=== PATIENT | female | born 1955 | race Asian ===

== ENCOUNTER → 2018-09-19 | Outpatient (CLI) | payer OTHER ==
[~2018-09-19] VITALS: Ht 170.2 cm; Wt 99.8 kg
[~2018-09-19] MED LIST: AMBIEN 10 MG TA10 MG PO; AMITRIPTYLINE H10 M1 PO; CARISOPRODOL 3350 MG PO; CELEXA20 MG PO; CIPROFLOXACIN500 M3 PO; COLACE 100 MG100 MG PO; DURAGESIC1 EAC4 TOP; DURAGESIC1 EACH TRANSDERM; ENOXAPARIN100 MG/11 SUBQ; HYDROCODON-ACE1 EAC5 PO; HYDROCODON-ACE1 EAC7 PO; NORCO 10-325 T1 EACH PO; NUVIGIL50 MG PO; PACERONE 200 M200 M1 PO; PEPCID20 MG PO; PRILOSEC 20 MG20 MG PO; QUETIAPINE FUM100 MG PO; SEROQUEL 25 MG25 M1 PO; SOMA250 MG PO; SYNTHROID25 MC1 PO
--- NOTE | ~2018-09-19 | HPC ---
[facility] [address] [place] [address] PAIN MANAGEMENT CONSULTATION Name: RADHA ABREU Room #: REG [facility] M.R.#: [id number] Admission: 09/19/18 Attend Phys: Carter Garcia MD Discharge: Date of : 59 Report #: [id number] THIS REPORT FOR: //name// CC: Gale Garcia DATE OF SERVICE: 09/19/2018 CHIEF COMPLAINT: Followup visit for chronic headaches, status post craniectomy for debulking of anaplastic astrocytoma. HISTORY OF PRESENT ILLNESS: The patient is in the clinic today with her . She is followed by our clinic for medication of her pain medications necessary to help with daily function following her surgery. She had two craniotomies in 2016 and one in 12/2018 for debulking. She has actually been fairly stable over the course of the last 3 months. She reports to me that her pain score today is around a 7 and she describes it as a constant ache. Overall, she looks and reports that despite her score, she is somewhat better than she has been. MEDICATIONS: Duragesic 25 mcg q. 72 hours, hydrocodone 10/325 and Nuvigil 100 mg once daily for opioid related side effects and for narcolepsy. She has done well with Nuvigil. She would like to reduce her fentanyl patch to 25 mcg despite her pain score. This is her choice and she feels that she might have more energy if she is on less baseline narcotic. She has been very tired over the course of the last week, but it should be noted that she has been on Decadron for some time and it was just discontinued one week ago. I would expect that she is going to have lag because of the adrenal cortical suppression and before her adrenal glands will begin processing cortisol to baseline level in a diurnal rhythm it may take a few more weeks. We will wait and see. PHYSICAL EXAMINATION: GENERAL: She is conversant, dysarthric, but I thought her speech was actually clear today than last visit. VITAL SIGNS: Blood pressure 102/61, heart rate 81. Her BMI is 34.44. EXTREMITIES: She has diffuse tenderness of the cranium. Scar from previous surgery noted. CHEST: Clear. CARDIAC: Rhythm was regular. ABDOMEN: Soft. All medications were reviewed and reconciled. She is on a number of centrally [place] [address] [place] [address] PAIN MANAGEMENT CONSULTATION Name: RADHA ABREU Room #: REG [facility] Garcia.#: [id number] Admission: 09/19/18 Attend Phys: Carter Garcia MD Discharge: Date of : 59 Report #: [id number] acting medications. We reviewed each separately and I have agreed to provide for her the pain medications that are helpful. She will be on fentanyl 12 mcg q. 72-hour patch, hydrocodone 10/325, one-two tablets daily as needed for breakthrough pain. Her will help provide these for her and the Nuvigil at 100 mg once in the morning. Opioid agreement was reviewed in detail. The responsibilities for safeguarding medication discussed. Plan to see her back in the pain clinic in 3 months. By: [id number] Carter Garcia MD /nt
[2018-09-19 13:02] VITALS: BP 102/61
--- NOTE | 2018-09-19 13:18 | NUR ---
Pain Clinic Assessment: 1. History of Osteoarthritis: History of Rheumatoid Arthritis: 2. Height: 5 ft. 7 in. 170.2 cm. Weight: 220.0 lb. oz. 99.792 kg. Patient's BMI: 34.4 3. Vital Signs: BP: 102/61 Pulse: 81 Resp: 14 Temp: 02 Sat: 94 ECG Mon: 4. Pain Intensity: 7 5. Fall Risk: Dizziness: Y Needs help standing or walking: Y Fallen in the last 3 months: N Fall risk comments: 6. Patient on Blood Thinner: Enaxoparin (Lovenox) 7. History of Hypertension: N 8. Opioid Therapy greater than 6 weeks: Y Opiate Contract Signed: 9. Risk Assessment Tool Provided: 10. Functional Assessment Tool: 11. Recreational Drug Use: Never Drug Type: Tobacco Use: Never Smoker Tobacco Type: Amount or Packs/day: How Many Years: Alcohol Use: Yes Frequency: Weekly Quant: 2-3
== END ==
LOC: PAIN 07:16
DX: R51 Headache (principal); G89.29 Other chronic pain; Z72.89 Other problems related to lifestyle; Z98.890 Other specified postprocedural states; Z79.899 Other long term (current) drug therapy

== ENCOUNTER → 2018-10-13 | Outpatient (CLI) | payer OTHER ==
[~2018-10-13] VITALS: Ht 170.2 cm; Wt 97.8 kg
[~2018-10-13] MED LIST changes: +DURAGESIC1 EAC4 TD; +DURAGESIC1 EAC4 TRANSDERM; +K-DUR 20 MEQ T20 MEQ PO; +LEVOTHYROXINE25 MCG PO; +SORINE 80 MG TA80 M1 PO; +XARELTO20 MG PO
--- NOTE | ~2018-10-13 | HPC ---
[facility] [place] [address] PAIN MANAGEMENT CONSULTATION Name: RADHA ABREU Room #: REG [facility] M..#: [id number] Admission: 10/13/18 ������������������ Attend Phys: Carter Garcia MD Discharge: ������������������ Date of : 59 Report #: [id number] THIS REPORT FOR: //name// CC: Gale Garcia DATE OF SERVICE: 10/13/2018 CHIEF COMPLAINT: Followup visit for grade 3 astrocytoma and palliative care discussion. The patient is in the clinic today with her . They were here today for a 30-minute consultation regarding palliative care. He is the primary caregiver. She has completed her final course of chemotherapy. Currently, no treatments are being offered by her oncologist. She continues to suffer some from pain, which she scores as a 7/10 and we have been adjusting her opioid and nonopioid medications to try and cover as much of the pain as possible. Most of her pain is in the head and it is associated with her incisions from decompression. She describes it as gnawing and throbbing. She is confined to a wheelchair. She has a pressure sore on the buttock, which has been under treatment. This also increases pain. Other symptoms associated with her cancer include fatigue, weakness, shortness of breath, memory loss, occasional nervousness and some depression. She has had insomnia. MEDICATIONS: Fentanyl patch now 25 mcg q. 72 hours, hydrocodone 10/325 up to 2 per day for breakthrough, Nuvigil for cancer related fatigue and difficulty with concentration during the day. Xarelto, levothyroxine, Seroquel, Pepcid, Celexa and Soma. ALLERGIES: None. PHYSICAL EXAMINATION: GENERAL: She speaks with some hesitancy, but she is focused clear and oriented to time and place. She participated in the palliative care discussion. VITAL SIGNS: Blood pressure is 96/64, heart rate 70, respirations 12, O2 sats 94. BMI is 33.8. She has tenderness along the cranium. CHEST: Clear. CARDIAC: Regular rhythm. She shows no shortness of breath. [facility] [address] [place] [address] PAIN MANAGEMENT CONSULTATION Name: RADHA ABREU Room #: REG [facility].#: [id number] Admission: 10/13/18 ������������������ Attend Phys: Carter Garcia MD Discharge: ������������������ Date of : 59 Report #: [id number] IMPRESSION: 1. 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 2. Daytime fatigue, aphasia, nocturnal insomnia and chronic head pain. 3. Situational depression. RECOMMENDATIONS: 1. Long discussion ensued today about palliative care and hospice. She may be well a hospice candidate at this point. The philosophy of care was discussed at some length. Deciding that if something were to occur suddenly that she would not go to the hospital and pass away peacefully under the care of her and the hospice team is collazo. With cancer, this could occur at any time. She has, however, been stable for some time since her diagnosis. A decline can be slow or sudden. We cannot predict precisely the course of her cancer. 2. Palliative care is a form of symptom management provided and is essentially a home health reimbursement model that was discussed as the difference between hospice which is provided under hospice benefit. She will be going under Medicare soon. She may need some help with wound management, specialized durable equipment which could be provided through hospice. I have recommended that she continue on her current medications and I have renewed her hydrocodone and fentanyl. I have also renewed her Nuvigil. Followup visit scheduled in the pain clinic in 1-2 months and I will be available for further discussions and I answered questions regarding end of life care and palliative care at any time requested. ��������������������������������������������� ���������������������������������������� By: ��������������������������������������������� [id number] Carter Garcia MD /nt
[2018-10-13 14:00] VITALS: BP 96/64
--- NOTE | 2018-10-13 14:23 | NUR ---
Pain Clinic Assessment: 1. History of Osteoarthritis: Not Applicable History of Rheumatoid Arthritis: Not Applicable 2. Height: 5 ft. 7 in. 170.2 cm. Weight: 215.6 lb. oz. 97.796 kg. Patient's BMI: 33.8 3. Vital Signs: BP: 96/64 Pulse: 70 Resp: 12 Temp: 02 Sat: 94 ECG Mon: 4. Pain Intensity: 7 5. Fall Risk: Dizziness: Y Needs help standing or walking: Y Fallen in the last 3 months: Y Fall risk comments: 6. Patient on Blood Thinner: Enaxoparin (Lovenox) 7. History of Hypertension: N 8. Opioid Therapy greater than 6 weeks: Y Opiate Contract Signed: 9. Risk Assessment Tool Provided: low-0 10. Functional Assessment Tool: 11. Recreational Drug Use: Never Drug Type: Tobacco Use: Never Smoker Tobacco Type: Amount or Packs/day: How Many Years: Alcohol Use: Yes Frequency: Quant:
== END ==
LOC: PAIN 07:03
DX: C71.9 Malignant neoplasm of brain, unspecified (principal); R51 Headache; G89.29 Other chronic pain; F43.21 Adjustment disorder with depressed mood; R47.01 Aphasia; G47.09 Other insomnia; Z79.899 Other long term (current) drug therapy; Z79.891 Long term (current) use of opiate analgesic

== ENCOUNTER → 2018-12-06 | Outpatient (CLI) | payer OTHER ==
[~2018-12-06] VITALS: Ht 175.3 cm; Wt 89.8 kg
[~2018-12-06] MED LIST changes: +DILAUDID 2 MG TA2 MG PO
--- NOTE | ~2018-12-06 | HPC ---
[facility] [place] [address] PAIN MANAGEMENT CONSULTATION Name: RADHA ABREU Room #: REG [facility] Jana.#: [id number] Admission: 12/06/18 ������������������ Attend Phys: Carter Garcia MD Discharge: ������������������ Date of : 59 Report #: [id number] THIS REPORT FOR: //name// CC: Gary Garcia DATE OF SERVICE: 12/06/2018 PALLIATIVE CARE FOLLOWUP Followup visit for medication management of intractable pain, headache, post craniectomy syndrome. The patient is in the clinic today in followup with her . She was last seen on 10/13/2018. We have been carefully adjusting medications to provide the best pain relief with fewer side effects. She reports today that her pain intensity is a 7/10. It has been increasing somewhat. She is a fall risk and always needs help with walking. She uses a wheelchair except at home for short transfers and in therapy. Her BMI has remained stable, about 29.2. She denies osteoarthritis. Her pain is primarily in the left side of her head. She is on Lovenox. Has no history of hypertension. She is at low risk for addiction and has signed an opioid agreement. She describes her pain as a constant, gnawing, throbbing sensation. She occasionally has flares that are very severe. These occurred perhaps a bit more frequently since going off of steroids. She notices changes also with weather. PHYSICAL EXAMINATION: GENERAL: She appears a bit less cushingoid. She is in a wheelchair. She speaks hesitantly with slight slurring. VITAL SIGNS: Her blood pressure is 91/61, heart rate 73, BMI 29.2. HEENT: Pupils equal, round, reactive to light. EOMs are intact. Mucous membranes are moist. CHEST: Clear. CARDIAC: Rhythm is regular. IMPRESSION: 1. 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 2. Chronic cancer related fatigue. 3. Situational depression. 4. Management of high risk medications. We had a lengthy discussion today. [facility] [address] [address] PAIN MANAGEMENT CONSULTATION Name: BRADYMEYA ASHIA Room #: REG [facility] Henriquez#: [id number] Admission: 12/06/18 ������������������ Attend Phys: Carter Garcia MD Discharge: ������������������ Date of : 59 Report #: [id number] Total time spent in consultation was roughly 25 minutes. We have elected to do an opioid transition to hydromorphone 2 mg 1-2 tablets up to 3 times a day for breakthrough. Titrating instructions were given and trial prescription for #60 tablets initiated. She will continue on her baseline fentanyl 25 mcg q. 72 hours, which has been helpful. All other medications reviewed and reconciled including Nuvigil, which she takes for cancer related fatigue and difficulty with concentration. She is also on levothyroxine, Seroquel, Pepcid, Celexa and Soma. Followup visit is planned by phone to determine the suitability of this transition and opioid rotation. A followup visit is scheduled in pain clinic for a [id number] evaluation 1-2 months. We will try to keep her visits to only those essential to make sure that her medications are provided carefully and safely. We reviewed our opioid agreement and her responsibilities taking them cautiously and safely under our direction. ��������������������������������������������� ���������������������������������������� By: ��������������������������������������������� [id number] Carter Garcia MD /nt
[2018-12-06 11:13] VITALS: BP 91/60
--- NOTE | 2018-12-06 11:13 | NUR ---
Pain Clinic Assessment: 1. History of Osteoarthritis: Not Applicable History of Rheumatoid Arthritis: Not Applicable 2. Height: 5 ft. 9 in. 175.3 cm. Weight: 198.0 lb. oz. 89.812 kg. Patient's BMI: 29.2 3. Vital Signs: BP: 91/60 Pulse: 73 Resp: 16 Temp: 02 Sat: 95 ECG Mon: 4. Pain Intensity: 7 5. Fall Risk: Dizziness: Y Needs help standing or walking: Y Fallen in the last 3 months: N Fall risk comments: ALWAYS HAS HELP WITH WALKING, IN W/C AT HOME EXCEPT WHEN IN THERAPY 6. Patient on Blood Thinner: Enaxoparin (Lovenox) 7. History of Hypertension: N 8. Opioid Therapy greater than 6 weeks: Y Opiate Contract Signed: 9. Risk Assessment Tool Provided: low-0 10. Functional Assessment Tool: 42 11. Recreational Drug Use: Never Drug Type: Tobacco Use: Never Smoker Tobacco Type: Amount or Packs/day: How Many Years: Alcohol Use: Yes Frequency: Quant:
== END ==
LOC: PAIN 07:07
DX: G97.82 Other postprocedural complications and disorders of nervous system (principal); R53.0 Neoplastic (malignant) related fatigue; F43.21 Adjustment disorder with depressed mood; Z79.899 Other long term (current) drug therapy

== ENCOUNTER → 2019-01-30 | Outpatient (CLI) | payer OTHER ==
[~2019-01-30] VITALS: Ht 175.3 cm; Wt 86.9 kg
[~2019-01-30] MED LIST changes: +METHYLPHENIDATE5 MG PO
[2019-01-30 10:21] VITALS: BP 100/56
--- NOTE | 2019-01-30 10:33 | NUR ---
Pain Clinic Assessment: 1. History of Osteoarthritis: Not Applicable History of Rheumatoid Arthritis: Not Applicable 2. Height: 5 ft. 9 in. 175.3 cm. Weight: 191.6 lb. oz. 86.909 kg. Patient's BMI: 28.3 3. Vital Signs: BP: 100/56 Pulse: 76 Resp: 16 Temp: 02 Sat: 100 ECG Mon: 4. Pain Intensity: 8 5. Fall Risk: Dizziness: Y Needs help standing or walking: Y Fallen in the last 3 months: N Fall risk comments: ALWAYS HAS HELP WITH WALKING, IN W/C AT HOME EXCEPT WHEN IN THERAPY 6. Patient on Blood Thinner: XARELTO 7. History of Hypertension: N 8. Opioid Therapy greater than 6 weeks: Y Opiate Contract Signed: 9. Risk Assessment Tool Provided: low-0 10. Functional Assessment Tool: 11. Recreational Drug Use: Never Drug Type: Tobacco Use: Never Smoker Tobacco Type: Amount or Packs/day: How Many Years: Alcohol Use: No Frequency: Quant:
--- NOTE | 2019-01-31 13:26 | HPC ---
[facility] [address] [place] [place] [address] PAIN MANAGEMENT CONSULTATION Name: RADHA ABREU Room #: REG [facility] M..#: [id number] Admission: 01/30/19 ������������������ Attend Phys: Kalpana Lee Discharge: ������������������ Date of : 59 Report #: [id number] THIS REPORT FOR: //name// CC: Kalpana Levy MD DATE OF SERVICE: 01/30/2019 CHIEF COMPLAINT: Headache, post-craniotomy syndrome. HISTORY OF PRESENT ILLNESS: This is a very pleasant 63-year-old female who is here present with her for followup for medication management for palliative care that she uses to treat her ongoing headache as a result of her astrocytoma and craniotomies. She experiences chronic headaches in the occipital part of her head. She tells me that it is an 8/10 today, constant 9, throbbing pain. The medications help relieve it slightly. She tells me she is not currently doing any radiation or chemotherapy. She is trying to enjoy what she has left in her life, trying to be with her , and work on the quality of life that she has left. She tells me that she is going to have lab work drawn today, just routine labs, otherwise she has been enjoying her family. ALLERGIES: No known drug allergies. CURRENT MEDICATIONS: Ritalin 5 mg b.i.d., Dilaudid 2 mg as needed, fentanyl patch 25 mcg, Synthroid 37.5, Xarelto 20 mg, sotalol 80 mg, potassium 20 mEq, Seroquel 100 mg, Pepcid 20, Celexa, and Soma. PQRS: 1. She does not have a history of osteoarthritis or rheumatoid arthritis. 2. Height is 5 feet 9 inches, weight is 191. BMI is 28. Vital signs 100/56, pulse is 76, respirations 16, and oxygen sat is 100. Pain score is 8/10. 3. Fall risk, complains of dizziness, does need help with walking. She is in a wheelchair today, but she does need help with walking as well. She has not fallen in the last 3 months. 4. She is on Xarelto. She does not take medicine for hypertension. 5. Her opioid therapy is greater than 6 weeks; therefore, an opioid signed contract is on the chart. 6. Her risk assessment tool is 0. Functional assessment is 42/70. 7. Recreational drug use, she denies. She is not a smoker [place] [address] PAIN MANAGEMENT CONSULTATION Name: RADHA ABREU [id number] Admission: 01/30/19 ������������������ Attend Phys: Kalpana Lee Discharge: ������������������ Date of : 59 Report #: [id number] We did check the prescription monitoring system. The patient is filling appropriately for her fentanyl and Dilaudid. She recently started Ritalin in place of Nuvigil. Family tells me she safeguards her meds at all times. PHYSICAL EXAMINATION: GENERAL: This is alert and orientated female. She speaks with a slight slurring. She appears her stated age. Placing her pain score today at 8/10. HEENT: Pupils equal, round, and reactive to light. EOMs are intact. Mucous membranes are moist. Complains of daily headaches in the occipital part of her head. ASSESSMENT: 1. 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 2. Chronic cancer related fatigue. 3. Situational depression. 4. Management of high risk medications. We reviewed the fact that opiate medications are being used to provide analgesia adequate to support activities of daily living, not attempting to achieve a specific pain score on the 0-10 Visual Analog Scale. The current opiate medications are providing sufficient analgesia to allow the patient to participate in activities of daily living. The patient is not exhibiting any aberrant behavior suggestive of drug diversion. The patient is not having any adverse reactions to medications. The patient is not suffering from daytime somnolence or mental acuity changes. The patient is managing opiate-induced constipation with appropriate [id number]-[id number] agents and dietary considerations. The patient was counseled on concern for caution with operating a motor vehicle while using opiate medications. A physical exam was performed and the patient's functional status was evaluated. All patients with back pain were advised against the bed rest greater than 4 days and were advised to return to normal activities. Pain score assessment was noted and the treatment plan was reviewed with the patient. All current medications, both prescribed and OTC were reviewed and reconciled on the electronic medical record. Tobacco screening was accomplished and smoking cessation was advised when indicated. BMI was noted and diet/exercise modification was recommended for all patients following outside normal parameters. I reviewed with the patient today their responsibilities to safeguard prescription medications, reviewed their responsibility to utilize medications only as prescribed by the physician. They are to seek and receive pain medications only from 1 physician group ([facility]). They are to use 1 pharmacy and keep the clinic informed if they change pharmacies. Their responsibilities include making followup visits in a timely fashion and to avoid abrupt discontinuation of medication usage. Their responsibilities further [facility] [address] [place] [address] PAIN MANAGEMENT CONSULTATION Name: RADHA ABREU [facility] [id number] Admission: 01/30/19 ������������������ Attend Phys: Kalpana RUSS Rosa Discharge: ������������������ Date of : 59 Report #: [id number] include bringing their medications (bottles from the pharmacy with residual pills) to the visit for possible confirmation of pill counts and the patient understands it is their responsibility to submit to random drug screens to ensure both that the medications prescribed are present, and that no other controlled substances are present. All prescriptions provided today were generated electronically. PLAN: 1. The patient is doing reasonably well on her current medication of the fentanyl patch every 72 hours and would like refills of those. She had been taking about 3 Dilaudid per day as well that recently ran out before her appointment, so she had switched to hydrocodone. She does feel that the Dilaudid is much more effective in controlling her pain and enables her to have some activities that she does with her and family. They are requesting scripts refills today. 2. Fentanyl 25 mcg, #10 for today and 4-week and Dilaudid 2 mg every 8 hours, #90 for today and 4-week release. 3. We did briefly talk about medical marijuana. I did give her the name of [employer] that they can look at online to see about medical marijuana treatments. I am unsure of the date when they will start seeing patients to give them prescription cards and then start selling it. I encouraged the patient to look at their website to see if they could glean any information. 4. The patient will be seen back in 2 months. The patient denies any constipation as a result of her narcotics. She does have some daytime sleepiness, but she tells me that ongoing fatigue that she normally suffers from. The patient seen in collaboration with Dr. Carter Garcia who did see the patient as well today. ��������������������������������������������� <ELECTRONICALLY SIGNED> ���������������������������������������� By: Kalpana Lee ��������������������������������������������� 01/31/19 [id number] Kalpana Lee /nt
== END ==
LOC: PAIN 06:46
DX: C71.9 Malignant neoplasm of brain, unspecified (principal); F43.21 Adjustment disorder with depressed mood; R53.83 Other fatigue; Z79.899 Other long term (current) drug therapy

== ENCOUNTER → 2019-03-27 | Outpatient (CLI) | payer OTHER ==
[~2019-03-27] VITALS: Ht 170.2 cm; Wt 83.0 kg
[~2019-03-27] MED LIST changes: +DURAGESIC1 EACH TOP
[2019-03-27 11:14] VITALS: BP 104/40
--- NOTE | 2019-03-27 11:18 | NUR ---
Pain Clinic Assessment: 1. History of Osteoarthritis: Not Applicable History of Rheumatoid Arthritis: Not Applicable 2. Height: 5 ft. 7 in. 170.2 cm. Weight: 183.0 lb. oz. 83.008 kg. Patient's BMI: 28.7 3. Vital Signs: BP: 104/40 Pulse: 74 Resp: 16 Temp: 02 Sat: 99 ECG Mon: 4. Pain Intensity: 7 5. Fall Risk: Dizziness: N Needs help standing or walking: N Fallen in the last 3 months: N Fall risk comments: ALWAYS HAS HELP WITH WALKING, IN W/C AT HOME EXCEPT WHEN IN THERAPY 6. Patient on Blood Thinner: XARELTO 7. History of Hypertension: N 8. Opioid Therapy greater than 6 weeks: Y Opiate Contract Signed: 9. Risk Assessment Tool Provided: low-0 10. Functional Assessment Tool: 11. Recreational Drug Use: Never Drug Type: Tobacco Use: Never Smoker Tobacco Type: Amount or Packs/day: How Many Years: Alcohol Use: No Frequency: Quant:
--- NOTE | 2019-03-28 12:34 | HPC ---
[facility] [address] [place] [address] PAIN MANAGEMENT CONSULTATION Name: RADHA ABREU [id number] Admission: 03/27/19 Attend Phys: Kalpana Lee Discharge: Date of : 59 Report #: [id number] THIS REPORT FOR: //name// CC: Kalpana ALFONSO DATE OF SERVICE: 03/27/2019 CHIEF COMPLAINT: Headache, post-craniotomy syndrome. HISTORY OF PRESENT ILLNESS: This is a very pleasant 63-year-old female who returns to the pain clinic today with her for refill of her medications that she uses to help treat her ongoing headaches as a result of her astrocytoma and craniotomies. We are treating her as palliative care patient. The patient experiences chronic headaches in the occipital part of her head on a daily basis. Today, she rates her pain score at 7/10, stating it is a constant 9, throbbing pain that everything makes her pain worse and not much alleviates it. The patient is telling me that she feels quite sedated recently, taking several naps, very tired all the time. She is unsure if this is from her medications or if she is anemic. She is wondering about decreasing her medications slightly. Her is leery of this, but the patient is wanting to try a decrease. The patient tells me that she recently was in [place] with the extended family and enjoyed a vacation with them. She is quite tanned today and quite upbeat. She tells me next week she is going to have an MRI and see her doctor for lab results on Wednesday. The is wanting to wait until after that time to decrease her medications, but the patient is wanting to do this now. ALLERGIES: No known drug allergies. CURRENT LIST OF MEDICATIONS: 1. Dilaudid 2 mg p.r.n. 2. Fentanyl 25 mcg. 3. Methylphenidate 5 mg b.i.d. 4. Synthroid 37 mcg daily. 5. Xarelto 20 mg at dinner. 6. Sotalol 80 mg daily. 7. Potassium 20 mEq daily. 8. Seroquel 100 mg at bedtime. 9. Pepcid. 10. Celexa 20 mg daily. 11. Soma 350 mg at bedtime. [address] [address] PAIN MANAGEMENT CONSULTATION Name: RADHA ABREU Room #: REG CLDariana Jose.#: [id number] Admission: 03/27/19 Attend Phys: Kalpana Lee Discharge: Date of : 59 Report #: [id number] PQRS: 1. She does not have a history of osteoarthritis or rheumatoid arthritis. 2. Height is 5 feet 7 inches, weight is 183, BMI is 28. 3. Vital signs 104/40, pulse is 74, respirations 16, oxygen sat is 99. 4. Pain score 7/10. 5. Denies dizziness, is in a wheelchair today and has a walker at home and has not fallen in the last 3 months. 6. The patient is on Xarelto. She does not have a history of hypertension. 7. Opioid therapy is greater than [address] an opioid signed contract in the chart. 8. Risk assessment is low. Functional assessment is 42/70. 9. Recreational drug use, she denies. She is not a smoker and does not drink alcohol. I did check the prescription monitoring system due to the patient's medication fill. It looks like her fills were fairly close together, but the patient has enough medicines to last until the 04/10. We will check a random drug screen on her in the future. PHYSICAL EXAMINATION: GENERAL: This is alert and orientated female who appears her stated age. She reports a pain score today at 7/10. Her speech is slightly slurred at times. HEENT: Normocephalic, atraumatic. Pupils equal, round and reactive. Mucous membranes are moist. Complains of daily headaches in the occipital part of her head. IMPRESSION: 1. Chronic cancer related fatigue. 2. 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 3. Situational depression. 4. Management of high risk medications. We reviewed the fact that opiate medications are being used to provide analgesia adequate to support activities of daily living, not attempting to achieve a specific pain score on the 0-10 Visual Analog Scale. The current opiate medications are providing sufficient analgesia to allow the patient to participate in activities of daily living. The patient is not exhibiting any aberrant behavior suggestive of drug diversion. The patient is not having any adverse reactions to medications. The patient is not suffering from daytime somnolence or mental acuity changes. The patient is managing opiate-induced constipation with appropriate snvq-npf-nzmjryi agents and dietary considerations. The patient was counseled on concern for caution with operating a motor vehicle while using opiate medications. A physical exam was performed and the patient's functional status was evaluated. [address] [address] PAIN MANAGEMENT CONSULTATION Name: RADHA ABREU Room #: REG CLDariana Garcia.#: [id number] Admission: 03/27/19 Attend Phys: Kalpana Lee Discharge: Date of : 59 Report #: [id number] All patients with back pain were advised against the bed rest greater than 4 days and were advised to return to normal activities. Pain score assessment was noted and the treatment plan was reviewed with the patient. All current medications, both prescribed and OTC were reviewed and reconciled on the electronic medical record. Tobacco screening was accomplished and smoking cessation was advised when indicated. BMI was noted and diet/exercise modification was recommended for all patients following outside normal parameters. I reviewed with the patient today their responsibilities to safeguard prescription medications, reviewed their responsibility to utilize medications only as prescribed by the physician. They are to seek and receive pain medications only from 1 physician group ( [facility] They are to use 1 pharmacy and keep the clinic informed if they change pharmacies. Their responsibilities include making followup visits in a timely fashion and to avoid abrupt discontinuation of medication usage. Their responsibilities further include bringing their medications (bottles from the pharmacy with residual pills) to the visit for possible confirmation of pill counts and the patient understands it is their responsibility to submit to random drug screens to ensure both that the medications prescribed are present, and that no other controlled substances are present. All prescriptions provided today were generated electronically. PLAN: 1. After much discussion of at least 25 minutes, it was decided with the patient along with her to trial a decrease of her fentanyl to 12 mcg patches. The patient does have several 25mcg patches still in their possession since they are here early for their appointment, was decided to trial mcg patches for at least 2 weeks to see if she is able to tolerate this and not have a significant increase in pain. If it is not beneficial, she does have the 25 mcg patches to fall back on and then she can call the office and we will rewrite a prescription for 25 mcg. The patient is to continue her hydromorphone 2 mg up to 3 times a day. The patient verbalizes understanding. 2. Scripts given today for Dilaudid 2 mg #90 for release today and 4-week and fentanyl 12 mcg, #10 to be released today. 3. The patient denies any problems with constipation. She does take Senokot on a daily basis. I did explain to her that by decreasing her narcotics, she may have less problems with constipation. Hopefully, she will have less daytime sleepiness and feels less tired as a result of decreasing her narcotic dose. 4. The patient is seen in collaboration today with Dr. Carter Garcia, who saw the patient as well today. [address] [address] PAIN MANAGEMENT CONSULTATION Name: RADHA ABREU Room #: REG BHUPENDRA Henriquez#: [id number] Admission: 03/27/19 Attend Phys: Kalpana Lee Discharge: Date of : 59 Report #: [id number] 5.We will decrease the patient's morphine mEq from 84-52 by decreasing her fentanyl patch. <ELECTRONICALLY SIGNED> By: Kalpana Lee 03/28/19 1234 1500 Glenn Lee /amanda
== END ==
LOC: PAIN 06:57
DX: C71.9 Malignant neoplasm of brain, unspecified (principal); C79.9 Secondary malignant neoplasm of unspecified site; R53.82 Chronic fatigue, unspecified; F32.9 Major depressive disorder, single episode, unspecified; Z79.899 Other long term (current) drug therapy

== ENCOUNTER → 2019-05-29 | Outpatient (CLI) | payer OTHER ==
[~2019-05-29] VITALS: Ht 170.2 cm; Wt 84.6 kg
[2019-05-29 13:37] VITALS: BP 116/71
--- NOTE | 2019-05-29 13:55 | NUR ---
Pain Clinic Assessment: 1. History of Osteoarthritis: Not Applicable History of Rheumatoid Arthritis: Not Applicable 2. Height: 5 ft. 7 in. 170.2 cm. Weight: 186.6 lb. oz. 84.641 kg. Patient's BMI: 29.2 3. Vital Signs: BP: 116/71 Pulse: 73 Resp: 18 Temp: 02 Sat: 98 ECG Mon: 4. Pain Intensity: 5 5. Fall Risk: Dizziness: Y Needs help standing or walking: Y Fallen in the last 3 months: Y Fall risk comments: ALWAYS HAS HELP WITH WALKING, IN W/C AT HOME EXCEPT WHEN IN THERAPY 6. Patient on Blood Thinner: XARELTO 7. History of Hypertension: N 8. Opioid Therapy greater than 6 weeks: Y Opiate Contract Signed: 9. Risk Assessment Tool Provided: low-0 10. Functional Assessment Tool: 11. Recreational Drug Use: Never Drug Type: Tobacco Use: Never Smoker Tobacco Type: Amount or Packs/day: How Many Years: Alcohol Use: No Frequency: Quant:
--- NOTE | 2019-05-30 12:37 | HPC ---
[facility] [address] [place] [address] PAIN MANAGEMENT CONSULTATION Name: RADHA ABREU Room #: REG [facility] M..#: [id number] Admission: 05/29/19 Attend Phys: Kalpana Lee Discharge: Date of : 59 Report #: [id number] THIS REPORT FOR: //name// CC: Kalpana Azar Tiarra Marquis DATE OF SERVICE: 05/29/2019 CHIEF COMPLAINT: Headache, post-craniotomy syndrome. HISTORY OF PRESENT ILLNESS: This is a very pleasant 63-year-old female who returns to the pain clinic today for a refill of her medications that she uses to help treat her ongoing headache as a result of her astrocytoma and craniotomies. She believes that since we have decreased her fentanyl patch from 25 mcg to 12 mcg, she is doing quite well. Her pain score has not elevated. She tells me that she has less constipation. She continues to take 2-3 Dilaudid tablets a day as needed, but feels that the change has been beneficial in decreasing her medications. She does continue to still complain of head and neck pain that is a 5/10 that is mostly an achy, throbbing stiffness feeling, worse with housework and weather changes, but the medication is helpful as well as cold. She feels like she has might be slightly less overmedicated feeling at times as well. ALLERGIES: No known drug allergies. CURRENT LIST OF MEDICATIONS: Fentanyl 12 mcg patch every 72 hours, hydromorphone 2 mg t.i.d. p.r.n., methylphenidate 5 mg b.i.d., Synthroid 37 mcg daily, Xarelto 20 mg daily, sotalol 80 mg daily, potassium 20 mEq daily, Seroquel 100 mg at bedtime, Pepcid 20 mg daily, Seroquel 25 mg daily, Celexa 20 mg daily and Soma p.r.n. PQRS: 1. She does not have a history of osteoarthritis or rheumatoid arthritis. 2. Height is 5 feet 7 inches, weight is 186, BMI is 29. 3. Vital signs 116/71, pulse is 73, respirations 18, oxygen sat is 98. 4. Pain score is 5/10. 5. Complains of some dizziness, does need help walking and standing. Has not fallen in the last 3 months. 6. The patient is on Xarelto, but does not take medicine for hypertension. 7. Opioid therapy is greater than 6 weeks; therefore, an opioid signed contract is on the chart. Her risk assessment tool is low. Functional assessment is 42/70. 8. Recreational drug use, she denies she is not a smoker and does not drink alcohol. [address] [address] PAIN MANAGEMENT CONSULTATION Name: RADHA ABREU Room #: REG CLI [facility].#: [id number] Admission: 05/29/19 Attend Phys: Kalpana Lee Discharge: Date of : 59 Report #: [id number] According to the prescription monitoring system, the patient is filling her meds appropriately. She has an opioid signed contract on the chart. We will check a random drug screen on her in the future. PHYSICAL EXAMINATION: GENERAL: This is alert and orientated 63-year-old female who appears her stated age, placing her current pain score today at 5/10. HEENT: Normocephalic, atraumatic. Pupils equal, round and reactive to light. She has daily headaches in the occipital region of her head. She does have slight tenderness along the cranium as well. ASSESSMENT: 1. 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 2. Chronic cancer related fatigue. 3. Intractable headaches as related to her astrocytoma. 4. Situational depression. 5. Management of high risk medications. We reviewed the fact that opiate medications are being used to provide analgesia adequate to support activities of daily living, not attempting to achieve a specific pain score on the 0-10 Visual Analog Scale. The current opiate medications are providing sufficient analgesia to allow the patient to participate in activities of daily living. The patient is not exhibiting any aberrant behavior suggestive of drug diversion. The patient is not having any adverse reactions to medications. The patient is not suffering from daytime somnolence or mental acuity changes. The patient is managing opiate-induced constipation with appropriate kmty-rze-odsmhmq agents and dietary considerations. The patient was counseled on concern for caution with operating a motor vehicle while using opiate medications. A physical exam was performed and the patient's functional status was evaluated. All patients with back pain were advised against the bed rest greater than 4 days and were advised to return to normal activities. Pain score assessment was noted and the treatment plan was reviewed with the patient. All current medications, both prescribed and OTC were reviewed and reconciled on the electronic medical record. Tobacco screening was accomplished and smoking cessation was advised when indicated. BMI was noted and diet/exercise modification was recommended for all patients following outside normal parameters. I reviewed with the patient today their responsibilities to safeguard prescription medications, reviewed their responsibility to utilize medications only as prescribed by the physician. They are to seek and receive pain medications only from 1 physician group ([facility]). They are to use 1 pharmacy and keep the clinic informed if they change pharmacies. Their responsibilities include making followup visits in a timely fashion and to avoid [address] [address] PAIN MANAGEMENT CONSULTATION Name: RADHA ABREU Room #: REG [facility]#: [id number] Admission: 05/29/19 Attend Phys: Kalpana Lee Discharge: Date of : 59 Report #: [id number] abrupt discontinuation of medication usage. Their responsibilities further include bringing their medications (bottles from the pharmacy with residual pills) to the visit for possible confirmation of pill counts and the patient understands it is their responsibility to submit to random drug screens to ensure both that the medications prescribed are present, and that no other controlled substances are present. All prescriptions provided today were generated electronically. PLAN: 1. We discussed treatment options with the patient today. The patient feels that she is doing well with the decrease of her fentanyl, did not experience any withdrawal symptoms. She believes she has less constipation with the decrease of medications and the feels that she might be slightly better cognitively than when she was on the higher medications. 2. Scripts given for fentanyl 12 mcg patch #10 for release today and 4-week as well as hydromorphone 2 mg, #90 for today and 4-week release. 3. The patient did sign an opioid contract that we do have our patients sign once and explained to her that we assume she will not get narcotics from any other physician. She had recently signed one at [facility] when she was a patient of Dr. Garcia's there. 4. The patient will follow up in 2 months. Her current morphine mEq is 52 mg of morphine per day. The patient is seen in collaboration with Dr. Carter Garcia. <ELECTRONICALLY SIGNED> By: Kalpana Lee 05/30/19 1237 [id number] Kalpana Lee /nt
== END ==
LOC: PAIN 06:53
DX: R51 Headache (principal); C71.9 Malignant neoplasm of brain, unspecified; F43.21 Adjustment disorder with depressed mood

== ENCOUNTER → 2019-07-25 | Outpatient (CLI) | payer OTHER ==
[~2019-07-25] VITALS: Ht 170.2 cm; Wt 82.1 kg
[~2019-07-25] MED LIST changes: +METHYLPHENIDATE10 M4 PO; -METHYLPHENIDATE5 MG PO; +MORPHINE SULFAT15 MG PO
[2019-07-25 13:04] VITALS: BP 156/86
--- NOTE | 2019-07-25 13:08 | NUR ---
Pain Clinic Assessment: 1. History of Osteoarthritis: DENIES History of Rheumatoid Arthritis: DENIES 2. Height: 5 ft. 7 in. 170.2 cm. Weight: 181.0 lb. oz. 82.101 kg. Patient's BMI: 28.3 3. Vital Signs: BP: 156/86 Pulse: 76 Resp: 15 Temp: 02 Sat: 97 ECG Mon: 4. Pain Intensity: 6 5. Fall Risk: Dizziness: N Needs help standing or walking: Y Fallen in the last 3 months: N Fall risk comments: ALWAYS HAS HELP WITH WALKING, IN W/C AT HOME EXCEPT WHEN IN THERAPY 6. Patient on Blood Thinner: XARELTO 7. History of Hypertension: N 8. Opioid Therapy greater than 6 weeks: Y Opiate Contract Signed: 9. Risk Assessment Tool Provided: low-0 10. Functional Assessment Tool: 11. Recreational Drug Use: Never Drug Type: Tobacco Use: Never Smoker Tobacco Type: Amount or Packs/day: How Many Years: Alcohol Use: No Frequency: Quant:
--- NOTE | 2019-07-26 08:45 | HPC ---
[facility] [address] [place] [address] PAIN MANAGEMENT CONSULTATION Name: RADHA ABREU [id number] Admission: 07/25/19 Attend Phys: Kalpana Lee Discharge: Date of : 59 Report #: [id number] THIS REPORT FOR: //name// CC: Kalpana Garcia MD DATE OF SERVICE: 07/25/2019 CHIEF COMPLAINT: Headache, post-craniotomy syndrome. HISTORY OF PRESENT ILLNESS: This is a very pleasant 64-year-old female who returns to the pain clinic today with her . She is reporting a pain score of 6/10. She states she is feeling much better, has been able to decrease her Dilaudid in the middle of the day that she typically takes for her head and neck pain. Again, her pain score is 6/10, is an aching, throbbing stiffness, it is worse with weather changes and housework and activity. She feels her medications are beneficial as well as using an occasional THC which she does have a green card now from the state of [place]. Her is learning the process of growing their own marijuana plants. The patient is hopeful to wean off her opioids and just use marijuana in the future. She has discussed this in depth with Dr. Garcia at previous visits. Today, she would like to discuss opioid rotation or decreasing her fentanyl patch. ALLERGIES: No known drug allergies. CURRENT LIST OF MEDICATIONS: 1. Hydromorphone 2 mg b.i.d. 2. Fentanyl 12 mcg patch every 72 hours. 3. Methylphenidate 10 mg daily. 4. Levothyroxine 37.5 mcg. 5. Xarelto 20 mg daily. 6. Sotalol 80 mg b.i.d. 7. Potassium 20 mEq. 8. Seroquel 100 mg. 9. Pepcid. 10. Celexa. 11. Soma. PQRS: 1. She does not have a history of osteoarthritis or rheumatoid arthritis. 2. Height is 5 feet 7 inches, weight is 181, BMI is 28. 3. Vital signs 156/86, pulse is 76, respirations 16, oxygen sat is 97. 4. Pain score is 6/10. 5. Denies dizziness. Does need help walking. She is in a wheelchair today. [address] [address] PAIN MANAGEMENT CONSULTATION Name: RADHA ABREU Room #: REG Dariana Henriquez#: [id number] Admission: 07/25/19 Attend Phys: Kalpana Lee Discharge: Date of : 59 Report #: [id number] Does have a walker at home. She has not fallen in the last 3 months. 6. The patient is on Xarelto. She does not take any hypertension medications. 7. Opioid therapy is greater than 6 weeks; therefore, an opioid signed contract is on the chart. Risk assessment tool is low. Functional assessment is 42/70. 8. She does use marijuana. Does not use tobacco products and does not drink alcohol. According to the prescription monitoring system, the patient is filling in a timely fashion by Dr. Carter Garcia and is due to fill them next week. PHYSICAL EXAMINATION: GENERAL: This is alert and orientated 64-year-old female who appears her stated age, upbeat today, placing her current pain score at 6/10. HEENT: Normocephalic, atraumatic. Pupils equal, round and reactive to light. NECK: She has daily headaches in the occipital region of the posterior head that radiate into upward. She has tenderness along the cranium as well. ASSESSMENT: 1. 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 2. Chronic cancer related fatigue, on methylphenidate. 3. Intractable headaches as related to her astrocytoma. 4. Situational depression. 5. Management of high risk medications. We reviewed the fact that opiate medications are being used to provide analgesia adequate to support activities of daily living, not attempting to achieve a specific pain score on the 0-10 Visual Analog Scale. The current opiate medications are providing sufficient analgesia to allow the patient to participate in activities of daily living. The patient is not exhibiting any aberrant behavior suggestive of drug diversion. The patient is not having any adverse reactions to medications. The patient is not suffering from daytime somnolence or mental acuity changes. The patient is managing opiate-induced constipation with appropriate mqfk-tfj-vwkxmwq agents and dietary considerations. The patient was counseled on concern for caution with operating a motor vehicle while using opiate medications. PLAN: 1. We discussed treatment options with the patient and her spouse today. The patient has been able to decrease her midday breakthrough pain medicine dose and does occasionally use medical marijuana and finds this very beneficial. The patient has obtained her green card, medical marijuana card in the hopes of weaning off her opioid medications in the future. Today, she would like to discuss a possible decrease of her fentanyl patch or opioid rotation. 2. I spent greater than 25 minutes discussing options with the patient, her morphine milliequivalent currently with her 12 mcg patch and 2 mg Dilaudid twice a day is 44. According to the CDC guidelines if we stopped her fentanyl patch [facility] [address] [place] [address] PAIN MANAGEMENT CONSULTATION Name: RADHA ABREU Room #: REG CLDariana Henriquez#: [id number] Admission: 07/25/19 Attend Phys: Kalpana Lee Discharge: Date of : 59 Report #: [id number] which is already at the lowest manufactured dose and switch to 4 Dilaudid pills a day that would be 32 morphine milliequivalents or we could do an opioid rotation to a long-acting MS Contin at 15 mg 3 times a day starting with 45 morphine milliequivalents, then decreasing the middle dose to 30 morphine milliequivalents. The patient and family are interested in trial of the morphine. They know that the fentanyl patch is expensive for them and the morphine is a generic medication. 3. The patient will stop her fentanyl patch at the same time she starts her MS Contin 15 mg tablets. The patient will no longer take any breakthrough medicines. We will continue MS Contin 15 mg 3 times a day for at least 2 weeks if the patient at that time feels that she is able to decrease her morphine, stopping the middle dose of the day. She will try this for the next 2 weeks. She is instructed to call us if need be. Otherwise, we will see her in 1 month to evaluate how her medications are doing. E-script for MS Contin 15 mg #90 to her [facility] pharmacy. 4. The patient instructed to call if she does have any issues. She will have some fentanyl patches at home, if her medication rotation is not effective in controlling her pain. The patient is seen today under the collaboration with Dr. Carter Garcia. <ELECTRONICALLY SIGNED> By: Kalpana Lee 07/26/19 0845 [id number] Kalpana stratton
== END ==
LOC: PAIN 12:31
DX: F43.21 Adjustment disorder with depressed mood (principal); C71.9 Malignant neoplasm of brain, unspecified; Z79.899 Other long term (current) drug therapy; Z88.8 Allergy status to other drugs, medicaments and biological substances

== ENCOUNTER → 2019-08-21 | Outpatient (CLI) | payer OTHER ==
[~2019-08-21] VITALS: Ht 170.2 cm; Wt 84.5 kg
[~2019-08-21] MED LIST changes: +DILAUDID2 MG PO; +LEVO-T25 MCG PO; -LEVOTHYROXINE25 MCG PO
[2019-08-21 10:32] VITALS: BP 128/68
--- NOTE | 2019-08-21 10:51 | NUR ---
Pain Clinic Assessment: 1. History of Osteoarthritis: DENIES History of Rheumatoid Arthritis: YES 2. Height: 5 ft. 7 in. 170.2 cm. Weight: 186.2 lb. oz. 84.460 kg. Patient's BMI: 29.2 3. Vital Signs: BP: 128/68 Pulse: 78 Resp: 16 Temp: 02 Sat: 98 ECG Mon: 4. Pain Intensity: 6 5. Fall Risk: Dizziness: Y Needs help standing or walking: Y Fallen in the last 3 months: N Fall risk comments: ALWAYS HAS HELP WITH WALKING, IN W/C AT HOME EXCEPT WHEN IN THERAPY 6. Patient on Blood Thinner: XARELTO 7. History of Hypertension: N 8. Opioid Therapy greater than 6 weeks: Y Opiate Contract Signed: 05/29/19 9. Risk Assessment Tool Provided: low-0 10. Functional Assessment Tool: 42 11. Recreational Drug Use: Never Drug Type: Tobacco Use: Never Smoker Tobacco Type: Amount or Packs/day: How Many Years: Alcohol Use: No Frequency: Quant:
--- NOTE | 2019-08-22 08:17 | HPC ---
[facility] [place] [address] [place] [address] PAIN MANAGEMENT CONSULTATION Name: RADHA ABREU Room #: REG BHUPENDRA Garcia.#: [id number] Admission: 08/21/19 Attend Phys: Kalpana Lee Discharge: Date of : 59 Report #: [id number] THIS REPORT FOR: //name// CC: Kalpana Garcia MD DATE OF SERVICE: 08/21/2019 CHIEF COMPLAINT: Post-craniotomy syndrome, headaches. HISTORY OF PRESENT ILLNESS: This is a 64-year-old female who returns to the pain clinic with her to discuss her medications that she uses to help treat her headaches as result in astrocytoma that has left her with chronic headaches. At her last visit, she had reported she would like to try and decrease her medications, but it was on the lowest level of fentanyl patches, so we rotated her to morphine sulfate. The patient is taking 15 mg tablets up to 3 times a day. The patient and report that she was foggy on this medication that she was talking differently and confused at times, so they recently returned back to her fentanyl patches, which they had at home. She is on her second full patch of the fentanyl rating her pain score at 6/10 today. She does still have some achy and stiffness in her head and neck, but feels that the fentanyl patches are more beneficial medicine for her with less side effects. They would like to resume this medicine with scripts today. Per the 's report, the patient recently had a new MRI and MRA. They are still conferring with severe doctors if she had a possible small stroke or if it was artifact in the MRI or if it was related to new cancer cells. They are having another followup MRI in 2 weeks and seeing her doctors again. ALLERGIES: No known drug allergies. CURRENT LIST OF MEDICATIONS: Hydromorphone 2 mg p.r.n., fentanyl patch 12 mcg every 3 days, methylphenidate daily, levothyroxine, Xarelto, sotalol, Pepcid, Celexa, Soma. PQRS: 1. She does not have a history of osteoarthritis, the reports rheumatoid arthritis. 2. Height is 5 feet 7 inches, weight is 186, BMI is 29. 3. 128/68, pulse is 78, respirations 16, oxygen sat is 98. 4. Pain score 6/10. 5. Has dizziness. Does need help walking. She is in a wheelchair today, has [facility] [address] [place] [address] PAIN MANAGEMENT CONSULTATION Name: RADHA ABREU Room #: REG [facility].#: [id number] Admission: 08/21/19 Attend Phys: Kalpana Lee Discharge: Date of : 59 Report #: [id number] not fallen in the last 3 months. 6. The patient is on Xarelto and does not take medicine for hypertension. 7. Opioid therapy is greater than 6 weeks; therefore, an opioid signed contract is on the chart. Risk assessment tool is low. Functional assessment is 42/70. 8. Recreational drug use, she denies. She is not a smoker and does not drink alcohol. According to the prescription monitoring system, the patient is filling only medicines from us for her opioids. The current MME with her fentanyl would be 62 MMEs per day. PHYSICAL EXAMINATION: GENERAL: This is alert and orientated 64-year-old female who appears her stated age, placing her current pain score 6/10 today. HEENT: Normocephalic, atraumatic. Pupils equal, round and reactive to light. NECK: Complains of a daily headache in the occipital area that does radiate towards the temporal area. MUSCULOSKELETAL: She has tenderness in the cranium. Does complain of neck stiffness at times with rotation. ASSESSMENT: 1. 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 2. Chronic cancer related fatigue on methylphenidate. 3. Increase intractable headaches as related to her astrocytoma. 4. Situational depression. 5. Management of high risk medications. PLAN: 1. We discussed treatment options with the patient and family members today. They feel that the morphine gave her too many side effects of fogginess, confusion. They did call our office and they returned to her fentanyl patch. She has just recently put her second patch on her pain relief is not to the level as it was prior. I explained to them that it may take a couple patches for her pain to decrease it to the same level. We will refill her fentanyl 12 mcg patches. These are costly for the patient, but they feel this is a better alternative than the morphine sulfate was. The patient had been stable on the 12 mcg of fentanyl patch for quite some time. 2. I encouraged the patient to take her Dilaudid as she needs for additional breakthrough pain sometimes requiring only half a tablet a day, sometimes 1-2 tablets depending on activity. We will prescribe 90 pills of her Dilaudid. This may last her 2 months. If she is finding that she is needing it more often, we will gladly call prescribe an additional month for her as we had in the past. 3. All medications will be sent to her pharmacy for her fentanyl 12 mcg for 2 months as well as the Dilaudid. 4. The patient will return in our office for followup in 2 months. The patient [address] [address] PAIN MANAGEMENT CONSULTATION Name: RADHA ABREU Room #: REG Dariana Garcia.#: [id number] Admission: 08/21/19 Attend Phys: Kalpana Lee Discharge: Date of : 59 Report #: [id number] instructed to keep us apprised of any new findings with her MRIs. The patient is seen today in collaboration with Dr. Carter Garcia and Dr. Gregory Garcia. <ELECTRONICALLY SIGNED> By: Kalpana Lee 08/22/19 0817 [id number] Kalpana Lee /nt
== END ==
LOC: PAIN
DX: C71.9 Malignant neoplasm of brain, unspecified (principal); F43.21 Adjustment disorder with depressed mood; Z79.899 Other long term (current) drug therapy; Z88.8 Allergy status to other drugs, medicaments and biological substances

== ENCOUNTER → 2019-09-28 | Outpatient (CLI) | payer OTHER ==
[~2019-09-28] VITALS: Ht 170.2 cm; Wt 83.6 kg
[2019-09-28 13:06] VITALS: BP 104/66
--- NOTE | 2019-09-28 13:28 | NUR ---
Pain Clinic Assessment: 1. History of Osteoarthritis: DENIES History of Rheumatoid Arthritis: YES 2. Height: 5 ft. 7 in. 170.2 cm. Weight: 184.4 lb. oz. 83.643 kg. Patient's BMI: 28.9 3. Vital Signs: BP: 104/66 Pulse: 73 Resp: 16 Temp: 02 Sat: 98 ECG Mon: 4. Pain Intensity: 7-8 5. Fall Risk: Dizziness: Y Needs help standing or walking: Y Fallen in the last 3 months: N Fall risk comments: ALWAYS HAS HELP WITH WALKING, IN W/C AT HOME EXCEPT WHEN IN THERAPY 6. Patient on Blood Thinner: XARELTO 7. History of Hypertension: N 8. Opioid Therapy greater than 6 weeks: Y Opiate Contract Signed: 05/29/19 9. Risk Assessment Tool Provided: low-0 10. Functional Assessment Tool: 11. Recreational Drug Use: Never Drug Type: Tobacco Use: Never Smoker Tobacco Type: Amount or Packs/day: How Many Years: Alcohol Use: No Frequency: Quant:
--- NOTE | 2019-10-02 12:46 | HPC ---
[facility] [place] [address] PAIN MANAGEMENT CONSULTATION Name: RADHA ABREU Room #: REG [facility] MZulay.#: [id number] Admission: 09/28/19 Attend Phys: Kalpana Lee Discharge: Date of : 59 Report #: [id number] THIS REPORT FOR: cc: DEEP García family physician/PCP DEEP García family physician/PCP Kalpana Lee ~ THIS REPORT FOR: //name// CC: Kalpana Lee [facility] physician/PCP DATE OF SERVICE: 09/28/2019 CHIEF COMPLAINT: Post-craniotomy syndrome and headaches. HISTORY OF PRESENT ILLNESS: This is a very pleasant 64-year-old female who returns to the pain clinic with her . She is being treated in our clinic for headaches as a result of astrocytoma that causes ongoing going headaches. Per their report today, she has had a new MRA scan and 2 MRI scans since we last saw her in August, which was determined that she has some new tumors possible in her corpus callosum. She has been having increased pain in the top of her head as well as in her neck. She is reporting a pain score of 7/10 today. She reports this is a thrombosis in the top of her head as well as stiffness and sharp feeling that is worse with activity. She feels the medications are not as beneficial as they had been in the past. She is wondering if we may increase her medicines to 25 mcg of fentanyl patch, which she had been on previously as late as last February. The patient had been able to decrease her medications, but she feels that she is taking more breakthrough pain medicines than she had in the past. The reports that they are trying to go on vacation with her family in October and they are trying to get her pain under control before they attempt a vacation, so they are here a month early to make adjustments in their medications. There have been also reports that as at this time, they are offering no further treatments for the patient for these new tumors. ALLERGIES: No known drug allergies. CURRENT LIST OF MEDICATIONS: Hydromorphone 2 mg p.r.n., fentanyl 12 mcg patch every 72 hours, methylphenidate 10 mg daily, Levo-T daily, Xarelto, Sorine, Pepcid, Celexa and Soma. PQRS: 1. She denies history of osteoarthritis, but is being treated for rheumatoid arthritis. 2. Height is 5 feet 7 inches, weight is 184, [place] 28[place] [address] PAIN MANAGEMENT CONSULTATION Name: RADHA ABREU Room #: REG CLDariana Garcia.#: [id number] Admission: 09/28/19 Attend Phys: Kalpana Lee Discharge: Date of : 59 Report #: [id number] 3. Vital signs 104/66, pulse is 73, respirations 16, oxygen sat is 98. 4. Pain score is 7-8. 5. Complains of dizziness, does need assistance with walking. She is in a wheelchair today and does have a walker as well. 6. The patient is on Xarelto. Does not take medicines for hypertension. 7. Opioid therapy is greater than 6 weeks; therefore, an opioid signed contract is on the chart. Risk assessment tool is low. Functional assessment is 42/70. 8. Recreational drug use, she denies. She is not a smoker and does not drink alcohol. According to the prescription monitoring system, the patient's current morphine mEq if she takes all of her Dilaudid tablets a day is 52 morphine mEq. She is filling in a timely fashion by 1 provider only. PHYSICAL EXAMINATION: GENERAL: This is alert and orientated 64-year-old female who appears her stated age, placing her current pain score at 7-8 today. HEENT: Normocephalic, atraumatic. Pupils equal, round and reactive to light. NECK: She has a daily headache in her occipital area as well as temporal portion of her head. The patient describes it as a thrombosis feeling. She has neck stiffness at times with rotation and flexion and extension. ASSESSMENT: 1. 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 2. Chronic cancer related fatigue on methylphenidate. 3. Increase intractable headaches as a result of her astrocytoma. 4. Situational depression. 5. Management of high risk medications. 6. We reviewed the fact that opiate medications are being used to provide analgesia adequate to support activities of daily living, not attempting to achieve a specific pain score on the 0-10 Visual Analog Scale. The current opiate medications are providing sufficient analgesia to allow the patient to participate in activities of daily living. The patient is not exhibiting any aberrant behavior suggestive of drug diversion. The patient is not having any adverse reactions to medications. The patient is not suffering from daytime somnolence or mental acuity changes. The patient is managing opiate-induced constipation with appropriate [id number] agents and dietary considerations. The patient was counseled on concern for caution with operating a motor vehicle while using opiate medications. A physical exam was performed and the patient's functional status was evaluated. All patients with back pain were advised against the bed rest greater than 4 days and were advised to return to normal activities. Pain score assessment was noted and the treatment plan was reviewed with the patient. All current medications, both prescribed and OTC were reviewed and reconciled on the electronic medical record. Tobacco screening was accomplished and smoking [address] [place] [address] PAIN MANAGEMENT CONSULTATION Name: RADHA ABREU Room #: REG [facility]..#: [id number] Admission: 09/28/19 Attend Phys: Kalpana RUSS Lee Discharge: Date of : 59 Report #: [id number] cessation was advised when indicated. BMI was noted and diet/exercise modification was recommended for all patients following outside normal parameters. I reviewed with the patient today their responsibilities to safeguard prescription medications, reviewed their responsibility to utilize medications only as prescribed by the physician. They are to seek and receive pain medications only from 1 physician group ( [facility]). They are to use 1 pharmacy and keep the clinic informed if they change pharmacies. Their responsibilities include making followup visits in a timely fashion and to avoid abrupt discontinuation of medication usage. Their responsibilities further include bringing their medications (bottles from the pharmacy with residual pills) to the visit for possible confirmation of pill counts and the patient understands it is their responsibility to submit to random drug screens to ensure both that the medications prescribed are present, and that no other controlled substances are present. All prescriptions provided today were generated electronically. PLAN: 1. We discussed treatment options with the and the patient today. They are requesting an increase in her fentanyl patch due to her new MRI results with her with increasing tumors. The patient is complaining of increased headaches. She is noticing that she is requiring more Dilaudid to keep her comfortable therefore requesting an increase. I discussed this case with Dr. Carter Garcia and he did see the patient as well today. We are agreeable to go back to 25 mcg of fentanyl patch. The patient has been overseeing her medication very carefully and monitors for any problems with respiratory depression or increase side effects of constipation. The patient has been on opioids for several years now. 2. We will have Dr. Carter Garcia electronically send her fentanyl 25 mcg, #10 for today and release on 10/19/2019 for vacation fill as well as her hydromorphone 2 mg, #90 for release today and again on 10/19/2019 for her vacation fill. 3. We will void her 4-week fentanyl 12 mcg patch at her pharmacy. Family is instructed to call if they have any difficulties with the medications. Again, the patient is seen in collaboration with Dr. Carter Garcia. <ELECTRONICALLY SIGNED> By: Kalpana Lee 10/02/19 1246 [id number] Kalpana Lee /nt
== END ==
LOC: PAIN 06:51
DX: C71.9 Malignant neoplasm of brain, unspecified (principal); R53.0 Neoplastic (malignant) related fatigue; G89.4 Chronic pain syndrome; F43.21 Adjustment disorder with depressed mood; Z79.899 Other long term (current) drug therapy; Z79.891 Long term (current) use of opiate analgesic

== ENCOUNTER → 2019-12-04 | Outpatient (CLI) | payer OTHER ==
--- NOTE | ~2019-12-04 | HPC ---
[facility] [place] [address] PAIN MANAGEMENT CONSULTATION Name: RADHA ABREU Room #: REG BHUPENDRA WelchJanaRicardo.#: [id number] Admission: 12/04/19 Attend Phys: Carter Garcia MD Discharge: Date of : 59 Report #: [id number] THIS REPORT FOR: cc: DEEP - No family physician/PCP DEEP - No family physician/PCP Carter Garcia MD ~ CC: [facility] physician/PCP Carter Garcia DATE OF SERVICE: 12/04/2019 Followup visit for management of high risk medications and treatment of advanced astrocytoma. TIME OF TELEMEDICINE VISIT: 1329 hours to 1347 hours, 18 minutes by video and audio connection on FaceTime. I spoke today in consultation with the patient and her . Her manages her medications and really all aspects of her illness. He did a lot of talking, but the camera was focused on the patient who is in bed with her 3 dogs! She looks good, alert and oriented. She was able to answer some questions with slight hesitancy. She has had some significant mental slowing as a result of her tumor. Her pain is reasonably well under control with current medicines. I provide for her fentanyl 25 mcg patch q. 72 hours and hydromorphone 2 mg for breakthrough t.i.d. In addition, she has carisoprodol from Dr. Herr, her oncologist and methylphenidate to help with alertness. She is receiving monthly MRIs, watching for tumor near the corpus callosum. She has had no significant symptom changes. She follows with her oncologist as well as with Dr. Yo Levy. Dr. Levy's neurosurgical approach at this time is to cautiously watch and wait, but no intervention is recommended. She has recently been placed on 2 mg of dexamethasone by her oncologist to help some with cerebral edema. They have been using marijuana products to help with appetite, mood, and pain. Her is providing that for her, which is now legal in [place], although the dispensaries are not open. We discussed the side effects and interactions of marijuana as a medicine in combination with opioids in the treatment of cancer. I think all would agree that this should be guided by response and symptoms and as long as they are using the medicine in a responsible way protecting it for their own individual use, I feel they are falling within the intent of the [place] law. She is not having significant side effects. She denies constipation. There [address] [address] PAIN MANAGEMENT CONSULTATION Name: RADHA ABREU Room #: REG CLI [facility]#: [id number] Admission: 12/04/19 Attend Phys: Carter Garcia MD Discharge: Date of : 59 Report #: [id number] have been no falls, but she is carefully watched over by her for transfers. She has some degenerative arthritis. Vital signs were not obtained today. They were not available in the home. She avoids tobacco and alcohol. Pain score report today is 5-8. IMPRESSION: 1. 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 MRI is being ordered and followed for prognosis. 2. Intractable pain, generally headaches as a result of her astrocytoma and surgery. 3. Situational depression and fatigue, which may be in part related to medication for pain. 4. Management of high risk medications and adjuncts. Medications were renewed under terms of our written agreement. We will keep a close eye on her prescriptions through the prescription drug monitoring program information. The telemedicine visit was very successful on both ends, I believe and was certainly easier for the patient. In the future if we can continue these visits electronically, it will spare her the need to leave the home. I will be happy to see her back in person in the clinic as requested. By: [id number] Carter Garcia MD /nt
== END ==
LOC: TELEPC 06:59 → PAIN 09:19 → TELEPC 15:01
DX: C71.0 Malignant neoplasm of cerebrum, except lobes and ventricles (principal); F32.9 Major depressive disorder, single episode, unspecified; R53.83 Other fatigue; Z79.891 Long term (current) use of opiate analgesic

== ENCOUNTER → 2020-02-01 | Outpatient (CLI) | payer OTHER ==
[~2020-02-01] VITALS: Ht 170.2 cm; Wt 84.0 kg
[~2020-02-01] MED LIST changes: +DEXAMETHASONE 22 M1 PO; +MELATONIN10 M3 PO
[2020-02-01 10:43] VITALS: BP 116/68
--- NOTE | 2020-02-01 11:09 | NUR ---
Pain Clinic Assessment: 1. History of Osteoarthritis: DENIES History of Rheumatoid Arthritis: YES 2. Height: 5 ft. 7 in. 170.2 cm. Weight: 185.2 lb. oz. 84.006 kg. Patient's BMI: 29.0 3. Vital Signs: BP: 116/68 Pulse: 77 Resp: 16 Temp: 02 Sat: 97 ECG Mon: 4. Pain Intensity: 7 5. Fall Risk: Dizziness: Y Needs help standing or walking: Y Fallen in the last 3 months: Y Fall risk comments: ALWAYS HAS HELP WITH WALKING, IN W/C AT HOME EXCEPT WHEN IN THERAPY 6. Patient on Blood Thinner: XARELTO 7. History of Hypertension: N 8. Opioid Therapy greater than 6 weeks: Y Opiate Contract Signed: 05/29/19 9. Risk Assessment Tool Provided: low-0 10. Functional Assessment Tool: 11. Recreational Drug Use: Never Drug Type: Tobacco Use: Never Smoker Tobacco Type: Amount or Packs/day: How Many Years: Alcohol Use: No Frequency: Quant:
--- NOTE | 2020-02-05 14:13 | HPC ---
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 HISTORY OF PRESENT ILLNESS: As you know, this is a very pleasant 64-year-old female who returns to the Pain Clinic today to discuss her medications that she uses to help treat her headaches as a result of her astrocytoma that has left her with chronic headaches. She has recently started having more headaches, which sent her to her neurosurgeon. He performed a NeuroBlade surgery on 12/27/2019 for a new lesion in the corpus callosum part of her brain. She is having a CT and MRI tomorrow per the 's report and then going to be prepped for radiation therapy to start 02/12/2020 at [facility] from Dr. Ferrara. After she has finished with radiation, there is a possibility of chemotherapy, though they are unsure of that at this point. Per the , they are going to seek addiction counselor from Dr. Levy to discuss gamma knife as well as an option or possibly no therapy depending on what the outcome may be. They are discussing quality versus quantity of life and would like his opinion. Today, the patient is complaining of pain score at 7/10 in the frontal part of her head. This is where the new growth has been. It is an achy, sharp, occasionally pressure, worse with activity, but also constant. The medications are beneficial though she has been taking 3 Dilaudid 2 mg tablets a day, which is an increase since our last visit. She does continue on her fentanyl patch, but they are wondering about increasing her overall pain medications that we used to help treat her palliatively. ALLERGIES: No known drug allergies. CURRENT LIST OF MEDICATIONS: Dilaudid 2 mg t.i.d., fentanyl 25 mcg patch every 72 hours, dexamethasone, melatonin, methylphenidate, levothyroxine, Xarelto, sotalol, Pepcid, Celexa, Soma. PATIENT'S PQRS: 1. The patient denies any osteoarthritis, but does have rheumatoid arthritis. 2. Height is 5 feet 7 inch, weight is 185, BMI is 29. 3. Vital signs 116/68, pulse is 77, respirations 16, oxygen sat is 97. 4. Pain score 7/10. [address] [address] PAIN MANAGEMENT CONSULTATION Name: RADHA ABREU [facility] [id number] Admission: 02/01/20 Attend Phys: Kalpana Lee Discharge: Date of : 59 Report #: [id number] 5. Does have dizziness. Does need help with walking. She is in a wheelchair today and has fallen in the last 3 months, not require medical care, but did suffer a bloody nose due to her Xarelto. She is on blood thinners and denies any blood pressure medicines. 6. Opioid therapy is greater than 6 weeks; therefore, an opioid signed contract is on the chart. Risk assessment tool is low. Functional assessment is 42/70. 7. Recreational drug use, she denies. She is not a smoker and does not drink alcohol. According to the prescription monitoring system, the patient has been filling appropriately for her medications, filling them in a timely fashion. PHYSICAL EXAMINATION: GENERAL: This is alert and orientated, well-developed, well-nourished, 64-year-old female who is rating her pain score at 7/10 today. HEENT: The patient complains of pain in the frontal part of her head as well as over the corpus callosum. She has diffuse tenderness in the cranium, scars noted from previous surgeries. She is having increased ataxia and is in a wheelchair today. IMPRESSION: 1. 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 2. Intractable pain, headaches as a result of her disease process. 3. Situational depression and fatigue. 4. Management of high risk medications. PLAN: 1. We discussed treatment options with the patient today as well as with Dr. Garcia. We are trying to treat this patient palliatively. Her pain is increased with this new tumor growth and surgery and treatment. She has been taking Dilaudid 3 times a day, but still complaining of significant pain. Over the past few months, we had decreased her fentanyl patch as she was doing significantly better. I believe that an increase is warranted. We will increase her fentanyl patch back to 37 mcg a day. The patient to take 25 mcg and 12 mcg patch, which is the less expensive option for them, 200 dollars versus 70 dollars for a month. The patient and family to continue her hydromorphone at 3 times a day for at least 72 hours and then hopefully she may be able to decrease the Dilaudid to twice a day if her pain is controlled with this increased dosage of fentanyl. The patient is to notify us if they are having difficulties with managing her pain. 2. The patient and family are encouraged to have Dr. Levy send us the MRI and CAT scan reports. We did discuss quality versus quantity of life. The patient has recently had a good vacation with her family for 2 weeks prior to the COVID outbreak where she did enjoy spending time with her family. She is considering treatment options as to continue with the aggressive measures of radiation and [facility] [address] [place] [address] PAIN MANAGEMENT CONSULTATION Name: RADHA ABREU [facility] [id number] Admission: 02/01/20 Attend Phys: Kalpana Lee Discharge: Date of : 59 Report #: [id number] chemotherapy or to live life comfortably with pain management with no further treatment options. They are making these decisions in the next few days. 3. The patient is seen in collaboration with Dr. Carter Garcia. The patient and family will call as needed. <ELECTRONICALLY SIGNED> By: Kalpana Lee 02/05/20 1413 [id number] Kalpana Lee /nt
== END ==
LOC: PAIN 08:56
PROVIDERS: ATTEND Clinical Nurse Specialist Adult Health
DX: C71.0 Malignant neoplasm of cerebrum, except lobes and ventricles (principal); Z79.899 Other long term (current) drug therapy

== ENCOUNTER → 2020-03-25 | Outpatient (CLI) | payer OTHER ==
[~2020-03-25] VITALS: Ht 170.2 cm; Wt 85.8 kg
[2020-03-25 12:23] VITALS: BP 138/83
--- NOTE | 2020-03-25 12:29 | NUR ---
Pain Clinic Assessment: 1. History of Osteoarthritis: DENIES History of Rheumatoid Arthritis: YES 2. Height: 5 ft. 7 in. 170.2 cm. Weight: 189.2 lb. oz. 85.821 kg. Patient's BMI: 29.6 3. Vital Signs: BP: 138/83 Pulse: 72 Resp: 18 Temp: 02 Sat: 100 ECG Mon: 4. Pain Intensity: 6-7 5. Fall Risk: Dizziness: N Needs help standing or walking: Y Fallen in the last 3 months: N Fall risk comments: ALWAYS HAS HELP WITH WALKING, IN W/C AT HOME EXCEPT WHEN IN THERAPY 6. Patient on Blood Thinner: XARELTO 7. History of Hypertension: N 8. Opioid Therapy greater than 6 weeks: Y Opiate Contract Signed: 05/29/19 9. Risk Assessment Tool Provided: low-0 10. Functional Assessment Tool: 11. Recreational Drug Use: Never Drug Type: Tobacco Use: Never Smoker Tobacco Type: Amount or Packs/day: How Many Years: Alcohol Use: No Frequency: Quant:
--- NOTE | 2020-03-27 11:06 | HPC ---
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 HISTORY OF PRESENT ILLNESS: This is a pleasant 64-year-old female who returns to the pain clinic today with her for refills of her medications. She reports that she has recently completed 26 of her 28 radiation treatments that she started due to new lesions in her corpus callosum of her brain. She is possibly going to start chemotherapy after the completion of her radiation. She will be meeting with her radiation oncologist and oncologist in April, have another MRI performed and then decide at that time. She does report that she has felt fairly well throughout her radiation treatments. She attributes this to possibly the increase in her pain medication prior to starting her treatments. Today, she rates her pain at a 6-7. It is mostly located in her head in various areas of the frontal and back of her head as well as occasional neck pain. She describes it as a stiffness and sharp pressure, worse with activity; feels that heat, ice, as well as her medication have been beneficial. She denies problems with constipation. She does watch her diet very closely. Her is here with her today and he reports they are going to try to spend a week at [facility] next week as a celebration after she has finished her radiation. The patient tells me she is looking forward to time away relaxing in the sun with her family. ALLERGIES: No known drug allergies. CURRENT LIST OF MEDICATIONS: Fentanyl 12 mcg patch, fentanyl 25 mcg patch, melatonin, hydromorphone 2 mg, dexamethasone, methylphenidate, levothyroxine, Xarelto, Sorine, Pepcid, Celexa and Soma. PATIENT'S PQRS: She denies osteoarthritis, but reports rheumatoid arthritis. Height is 5 feet 7 inches, weight is 189, BMI is 29. Vital signs 138/83, pulse is 72, respirations 18, oxygen sat is 100, pain score is 6-7. Fall risk. Denies dizziness. Does need help walking. She has ataxia from her tumors and has not fallen in the last 3 months. The patient is on Xarelto and does not take medicine for hypertension. Her opioid therapy is greater than 6 weeks; [facility] [address] [place] [address] PAIN MANAGEMENT CONSULTATION Name: RADHA ABREU Room #: REG [facility] Henriquez#: [id number] Admission: 03/25/20 Attend Phys: Carter Garcia MD Discharge: Date of : 59 Report #: [id number] therefore, an opioid signed contract is on the chart. Risk assessment is low. Functional assessment is 42/70. Recreational drug use, she denies. She is not a smoker and does not drink alcohol. According to the prescription monitoring system, the patient is filling appropriately in a timely fashion of her medications. Her current morphine milliequivalent according to the CDC guidelines are 112 MME per day. Again, this is a cancer patient that we treat palliatively. PHYSICAL EXAMINATION: GENERAL: This is alert and orientated, well-developed, well-nourished 64-year-old female who is rating her pain score from 6-7 today. HEENT: Normocephalic, atraumatic. Extraocular eye muscles are intact. She is having pain in the frontal part of her head as well as over the corpus callosum and diffuse tenderness throughout the cranium, has increased ataxia. She is in a wheelchair today as well. Her upper and lower extremities strength is deconditioned, though symmetrical. IMPRESSION: 1. Grade 3-4 astrocytoma with no new tumor growth, undergoing radiation treatments. 2. Intractable pain, headaches as a result of her disease process. 3. Situational depression and fatigue. 4. Management of high risk medications under terms of written opioid agreement. We reviewed the fact that opiate medications are being used to provide analgesia adequate to support activities of daily living, not attempting to achieve a specific pain score on the 0-10 Visual Analog Scale. The current opiate medications are providing sufficient analgesia to allow the patient to participate in activities of daily living. The patient is not exhibiting any aberrant behavior suggestive of drug diversion. The patient is not having any adverse reactions to medications. The patient is not suffering from daytime somnolence or mental acuity changes. The patient is managing opiate-induced constipation with appropriate [id number]-ofazkdm agents and dietary considerations. The patient was counseled on concern for caution with operating a motor vehicle while using opiate medications. PLAN: 1. We discussed treatment options with the patient today. The patient and her believe that the 37 mcg a day patches have been beneficial allowing her to control her pain through her radiation treatments. The patient would like to continue at those current levels. We will have Dr. Carter Garcia send 2 months of fentanyl 25 mcg patches and 2 months of fentanyl 12 mcg patches, quantity 10 of each of these. This is the cheaper option than filling a 37 mcg patch. 2. We will continue her on her hydromorphone as well. The patient takes 2-3 [facility] [address] [place] [address] PAIN MANAGEMENT CONSULTATION Name: RADHA ABREU Room #: REG CL Jose.#: [id number] Admission: 03/25/20 Attend Phys: Carter Garcia MD Discharge: Date of : 59 Report #: [id number] tablets a day, #90 sent for today and 4 weeks supply. 3. The patient may be starting chemotherapy prior to her next visit. If she is immunocompromised, we may consider a telemedicine appointment. If need be, we will have the call and discuss this as it comes closer to her appointment time. 4. The patient is seen in collaboration with Dr. Carter Garcia who did see the patient as well today. <ELECTRONICALLY SIGNED> By: Kalpana Lee 03/27/20 1106 [id number] Kalpana Lee /amanda
== END ==
LOC: PAIN 07:06
PROVIDERS: ATTEND Anesthesiology Pain Medicine
DX: C71.9 Malignant neoplasm of brain, unspecified (principal); G89.4 Chronic pain syndrome; F32.9 Major depressive disorder, single episode, unspecified; R53.83 Other fatigue; Z79.891 Long term (current) use of opiate analgesic

== ENCOUNTER → 2020-05-20 | Outpatient (CLI) | payer OTHER ==
[~2020-05-20] VITALS: Ht 170.2 cm; Wt 85.5 kg
[~2020-05-20] MED LIST changes: +HYDROCHLOROTHIA25 M2 PO
[2020-05-20 13:23] VITALS: BP 121/87
--- NOTE | 2020-05-20 13:54 | NUR ---
Pain Clinic Assessment: 1. History of Osteoarthritis: DENIES History of Rheumatoid Arthritis: YES 2. Height: 5 ft. 7 in. 170.2 cm. Weight: 188.4 lb. oz. 85.458 kg. Patient's BMI: 29.5 3. Vital Signs: BP: 121/87 Pulse: 92 Resp: 16 Temp: 02 Sat: 98 ECG Mon: 4. Pain Intensity: 8 5. Fall Risk: Dizziness: Y Needs help standing or walking: Y Fallen in the last 3 months: Y Fall risk comments: ALWAYS HAS HELP WITH WALKING, IN W/C AT HOME EXCEPT WHEN IN THERAPY 6. Patient on Blood Thinner: XARELTO 7. History of Hypertension: N 8. Opioid Therapy greater than 6 weeks: Y Opiate Contract Signed: 05/29/19 9. Risk Assessment Tool Provided: low-0 10. Functional Assessment Tool: 11. Recreational Drug Use: Never Drug Type: Tobacco Use: Never Smoker Tobacco Type: Amount or Packs/day: How Many Years: Alcohol Use: No Frequency: Quant:
--- NOTE | 2020-05-21 08:43 | HPC ---
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 HISTORY OF PRESENT ILLNESS: This is a 64-year-old female, who returns to the clinic today with her . They are reporting to me that she recently started oral chemo. It is a 5-day on and off for 25 days rotation. Since she has started this chemo, her white count have already decreased. Her is worried that she may need to have a blood transfusion if they continue to go decrease. She is scheduled to have her next blood draw at the end of this week. The patient reports to me that prior to starting chemo they were able to attend a small vacation with the family at [facility] and she found that was very beneficial in helping with some of her spirits. Today, she is reporting a pain score of 8-9/10 on a regular basis in her head and neck. She states it is an achy, stiffness with occasional pressure, worse with any activity. She does continue to transfer herself from the wheelchair to the bed. Overall, she feels medications have been beneficial as well as heat and ice. According to [place], the , her oncologist is wanting her to decrease some of her opioid medications to see if this will help some of her cognitive issues. The patient is answering all my questions appropriately today, but the patient reports she is having increasing pain and is afraid to decrease her medication in regards to her fentanyl or Dilaudid due to increasing pain issues. ALLERGIES: No known drug allergies. CURRENT LIST OF MEDICATIONS: Hydrochlorothiazide, fentanyl 25 mcg patch, fentanyl 12 mcg patch, hydromorphone 2 mg t.i.d. p.r.n., melatonin, dexamethasone, methylphenidate, levothyroxine, Xarelto, sotalol, Pepcid, Celexa and Soma. PQRS: 1. The patient denies osteoarthritis, but reports a history of rheumatoid arthritis and treatment. Height of 5 feet 7 inches, weight is 188, BMI is 29. Vital signs 121/87, pulse is 92, respirations 16, oxygen sat is 98, pain score is 8-9/10. Fall risk, complains of dizziness. Does need assistance with walking and has fallen in the last 3 months. The patient is on Xarelto. Denies any medicines for blood pressure. Opioid therapy is greater than 6 weeks; therefore, an opioid signed contract is on the chart. Risk assessment is low. Functional assessment is 42/70. Recreational drug use, she denies. She is not a smoker and does not drink alcohol. According to the prescription monitoring system, she is filling her medicines appropriately in a timely fashion. If she takes all of her medications. Her morphine mEq according to the CDC guidelines is 110. PHYSICAL EXAMINATION: GENERAL: This is alert and orientated female who is answering most of my questions appropriately, does seek guidance from her at times. She is a well-developed, well-nourished 64-year-old female, who is rating her pain score today at 8-9/10. HEENT: Normocephalic, atraumatic. Extraocular eye muscles are intact. She has pain in the frontal part of her head and diffuse tenderness throughout her cranium. She has increased ataxia. She is in a wheelchair today. MUSCULOSKELETAL: Her upper and lower extremities are diminished, but symmetrical. She has several areas of ecchymosis on her upper extremities and a skin tear on her right calf from a recent fall. IMPRESSION: 1. 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 2. Palliative care treatment for pain. 3. Situational depression and fatigue. 4. Intractable pain, headaches as a result of her disease process. 5. Management of high risk medications under terms of written opioid agreement. We reviewed the fact that opiate medications are being used to provide analgesia adequate to support activities of daily living, not attempting to achieve a specific pain score on the 0-10 Visual Analog Scale. The current opiate medications are providing sufficient analgesia to allow the patient to participate in activities of daily living. The patient is not exhibiting any aberrant behavior suggestive of drug diversion. The patient is not having any adverse reactions to medications. The patient is not suffering from daytime somnolence or mental acuity changes. The patient is managing opiate-induced constipation with appropriate zsgl-efp-zqqjhni agents and dietary considerations. The patient was counseled on concern for caution with operating a motor vehicle while using opiate medications. A physical exam was performed and the patient's functional status was evaluated. All patients with back pain were advised against the bed rest greater than 4 days and were advised to return to normal activities. Pain score assessment was noted and the treatment plan was reviewed with the patient. All current medications, both prescribed and OTC were reviewed and reconciled on the electronic medical record. Tobacco screening was accomplished and smoking cessation was advised when indicated. BMI was noted and diet/exercise modification was recommended for all patients following outside normal parameters. I reviewed with the patient today their responsibilities to safeguard prescription medications, reviewed their responsibility to utilize medications only as prescribed by the physician. They are to seek and receive pain medications only from 1 physician group ( [facility]). They are to use 1 pharmacy and keep the clinic informed if they change pharmacies. Their responsibilities include making followup visits in a timely fashion and to avoid abrupt discontinuation of medication usage. Their responsibilities further include bringing their medications (bottles from the pharmacy with residual pills) to the visit for possible confirmation of pill counts and the patient understands it is their responsibility to submit to random drug screens to ensure both that the medications prescribed are present, and that no other controlled substances are present. All prescriptions provided today were generated electronically. PLAN: 1. We discussed treatment options with the patient today. The patient continues to rate her pain at 8-9 and only taking two of her breakthrough pain medicines a day. I encouraged her to try three Dilaudid tablets a day for the next month and continue on her 37 mcg patches. If she continues to have pain rating at 8-9 with this increase Dilaudid, we may return to her previous dose of fentanyl 50 mcg patch. The patient had tolerated this medicine for quite some time with no changes in her cognitive function noted when medicine was increased or decreased. We would rather see the patient have some quality of life by having better pain control. The patient and family are agreeable with this plan of care. We will have Dr. Carter Garcia send fentanyl 25 and 12 mcg patch to the pharmacy and the patient will call with a report how she is doing in 1 month. At that time, we will determine if we need to increase her medicine or continue at the current regimen. 2. Since the patient's white count is lower at this time due to her chemotherapy, we will adjust by phone for the next month and then if need be after that do a telemedicine appointment depending on the patient's status with her chemotherapy. 3. The patient is seen today in collaboration with Dr.Richard Garcia. <ELECTRONICALLY SIGNED> By: Kalpana Lee 05/21/20 0843 [id number] [id number] Kalpana Lee /amanda
== END ==
LOC: PAIN 06:55
PROVIDERS: ATTEND Clinical Nurse Specialist Adult Health
DX: R51.9 Headache, unspecified (principal); M96.1 Postlaminectomy syndrome, not elsewhere classified; F32.9 Major depressive disorder, single episode, unspecified; R53.83 Other fatigue; F11.20 Opioid dependence, uncomplicated; Z79.899 Other long term (current) drug therapy

== ENCOUNTER → 2020-07-11 | Outpatient (CLI) | payer OTHER ==
[~2020-07-11] MED LIST changes: +DEXAMETHASONE 44 M1 PO; +DURAGESIC1 EAC5 TOP; +LIPITOR 20 MG T20 M1 PO; +SENNA LAX8.6 MG PO; +VITAMIN B-121000 MC2 PO
--- NOTE | ~2020-07-11 | HPC ---
[facility] [place] [address] PAIN MANAGEMENT CONSULTATION Name: RADHA ABREU Room #: REG [facility] M..#: [id number] Admission: 07/11/20 Attend Phys: Kalpana Lee Discharge: Date of : 59 Report #: [id number] THIS REPORT FOR: cc: DEEP - No family physician/PCP DEEP - No family physician/PCP Kalpana Lee ~ CC: Kalpana Lee 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 HISTORY OF PRESENT ILLNESS: This is a 65-year-old female who I am speaking with via [facility] today for a telemedicine appointment due to the coronavirus outbreak and the patient is immunocompromised due to recent chemotherapy. I had spoken with her recently on the phone after she did have a hospitalization due to a reaction from her last oral chemo. Since that time in early June, she has stopped taking all oral chemo presently. Per their report, she is going to have another MRI later this month to determine if they will try to continue chemotherapy in the future or the best plan of care. Today, the patient is reporting her pain score 8/10, utilizing a fentanyl 50 mcg patch every day and occasional Dilaudid. We have enabled her to have this three times a day, but per her 's report, she takes this 1-2 times daily. She also continues to use occasional edible marijuana and finds this sometimes beneficial in decreasing nausea and pain, though she does not take this on a daily basis. does report that the patient is going to start having home healthcare one time a week. Otherwise, they have been staying home, trying to avoid COVID and outside people to try and protect the patient from any illnesses. ALLERGIES: No known drug allergies. CURRENT LIST OF MEDICATIONS: Hydrochlorothiazide, fentanyl 50 mcg patch, Dilaudid 2 mg p.r.n., melatonin, dexamethasone, methylphenidate, levothyroxine, Xarelto, sotalol, Pepcid, Celexa and Soma. PQRS: 1. She denies any osteoarthritis, but has a history of rheumatoid arthritis and being treated for that. [address] [address] PAIN MANAGEMENT CONSULTATION Name: RADHA ABREU Room #: REG [facility].#: [id number] Admission: 07/11/20 Attend Phys: Kalpana Lee Discharge: Date of : 59 Report #: [id number] 2. Height, weight and vital signs are deferred due to a telemedicine appointment. She has a fall risk, does have dizziness and needs assistance with any movement. She is resting in her bed today. She is on Xarelto and is not on any blood pressure medicines. Her opioid therapy is greater than 6 weeks, therefore an opioid signed contract is on the chart. Risk assessment is low. Functional assessment is 42/70. 3. Recreational drug use, occasionally medical marijuana. She is not a smoker and does not drink alcohol. According to the prescription monitoring system, she is due to fill her medications next week. We treat her as a palliative patient, so therefore her MME is quite high, currently at 144 maximum a day. REVIEW OF SYSTEMS: The patient is alert, sitting in her bed, visiting with me. She has a cushingoid appearance in her face, rating her pain score an 8/10 today with significant pain in her head and neck. She needs assistance with movement from bed to the wheelchair and to the bathroom. PHYSICAL EXAMINATION: Deferred. IMPRESSION: 1. 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 2. Palliative care treatment for pain management. 3. Situational depression and fatigue. 4. Intractable pain, headaches as a result of her disease process. 5. Management of high risk medications following written opioid agreement. We reviewed the fact that opiate medications are being used to provide analgesia adequate to support activities of daily living, not attempting to achieve a specific pain score on the 0-10 Visual Analog Scale. The current opiate medications are providing sufficient analgesia to allow the patient to participate in activities of daily living. The patient is not exhibiting any aberrant behavior suggestive of drug diversion. The patient is not having any adverse reactions to medications. The patient is not suffering from daytime somnolence or mental acuity changes. The patient is managing opiate-induced constipation with appropriate [id number] agents and dietary considerations. The patient was counseled on concern for caution with operating a motor vehicle while using opiate medications. PLAN: 1. We discussed treatment options with the patient and today. Since our last visit, we had increased her fentanyl to 50 mcg patch. She has found this beneficial in helping decrease some of her pain, though it is still elevated to 8 today. We will continue this medication and have Dr. Garcia send it electronically for today and 4-week supply. I encouraged the patient to utilize her Dilaudid more frequently if she feels that she is having increasing [facility] [address] [place] [address] PAIN MANAGEMENT CONSULTATION Name: RADHA ABREU Room #: REG [facility] Henriquez#: [id number] Admission: 07/11/20 Attend Phys: Kalpana Lee Discharge: Date of : 59 Report #: [id number] pain. We have been enabling her 3 tablets a day and treating her as a palliative care patient. Our goal is not for her to be in any discomfort by limiting her Dilaudid use. The patient verbalized understanding. 2. We did talk about ongoing constipation issues, which the patient is complaining of. I encouraged the intake of more fluids, having her offer this several times a day when he is in the room since she does forget to drink at times. 3. We did briefly talk about hospice if her oncologist feels that there is no further need for chemotherapy after her next scan and if that is decided, I encouraged the patient and to speak with Dr. Garcia regarding treatment options that we may have available for them. We also discussed some homecare to aid the in caring for his . At this time, he is wanting to care for her only due to his worries of the COVID virus infecting her. 4. The patient is seen today via [facility] for this telemedicine appointment in collaboration with Dr. Carter Garcia. We will be available by phone or see them in 2 months. By: [id number] Kalpana Lee /nt
== END ==
LOC: TELEPC 06:56
PROVIDERS: ATTEND Clinical Nurse Specialist Adult Health
DX: Z48.811 Encounter for surgical aftercare following surgery on the nervous system (principal); R51.9 Headache, unspecified; F32.9 Major depressive disorder, single episode, unspecified; R53.83 Other fatigue; F11.20 Opioid dependence, uncomplicated; Z79.899 Other long term (current) drug therapy

== ENCOUNTER → 2020-09-16 | Outpatient (CLI) | payer OTHER ==
[~2020-09-16] MED LIST changes: +NEURONTIN 300M300 M2 PO
--- NOTE | 2020-09-17 08:10 | HPC ---
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 Palliative care patient. This is a telemedicine appointment from 9:45-10:05, that I am speaking with via [facility] that the patient has consented for. HISTORY OF PRESENT ILLNESS: This is a 65-year-old female who I am speaking with due to her immunocompromise due to her cancer. She is resting in bed today, rating her pain score quite high at 9/10. She reports today that her pain has been higher recently because she had recent bout of shingles. It started in her upper back and radiated under her left arm and to her armpit and continued to have lesions that went down her left arm. She was treated with antiviral from her oncologist and then they started her on gabapentin report. Per the 's report, she is now taking 300 mg 3 times a day that is helping some of her nerve pain. The patient does report the lesions have healed and have crusted over. The patient continues to have ongoing head and neck pain that is worse with activity, most frequently she is resting in bed per her report. She takes her fentanyl patch, occasional edible marijuana and Dilaudid very sparingly. In fact, they have not filled the last 2 prescriptions of Dilaudid that we prescribed in July. Per the 's report, she had an MRI since our last Telemed appointment and is scheduled for another one in 3 weeks. He reports they were unchanged in terms of tumor growth. Currently, the patient is not receiving chemotherapy. She had had 2 different reactions after a single dose, so her oncologist has placed her chemotherapy on hold. Today, they would like refills of her fentanyl patches. ALLERGIES: No known drug allergies. CURRENT LIST OF MEDICATIONS: Hydrochlorothiazide, fentanyl 50 mcg patch, Dilaudid 2 mg p.r.n., melatonin, dexamethasone, methylphenidate, levothyroxine, Xarelto, sotalol, Pepcid, Celebrex, Soma, gabapentin. PQRS: 1. She denies any osteoarthritis of the history of rheumatoid arthritis. [address] [address] PAIN MANAGEMENT CONSULTATION Name: RADHA ABREU Room #: REG [facility].#: [id number] Admission: 09/16/20 Attend Phys: Kalpana Lee Discharge: Date of : 59 Report #: [id number] 2. Height, weight and vital signs are deferred due to a telemedicine appointment. The patient does have a fall risk and has dizziness and needs assistance with any movement. Today, she is in bed, but does use a wheelchair at home. The patient is on Xarelto. Her opioid therapy is greater than 6 weeks; therefore, an opioid signed contract is on her chart. Her risk assessment is low. Functional assessment is 42/70. 3. Recreational drug use, she uses medical marijuana edibles that she does have a green card for. She is a nonsmoker and does not drink alcohol. According to the prescription monitoring, she is due to fill her fentanyl patch. She has not filled her Dilaudid since June; therefore, not needing that today. Her morphine mEq is 120-140 depending on her dose of Dilaudid. This physical exam and review of systems due to a Telemed appointment, she is sitting in bed. She is alert, answering all my questions appropriately, smiling at times, she has a cushingoid appearance in her face, rating her pain score quite high at 9/10 in her head and neck. She reports burning under her left arm from her recent shingles. IMPRESSION: 1. 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 2. Palliative care treatment for pain management. 3. Situational depression and fatigue. 4. Intractable pain, headache as a result of her disease process. 5. Management of high risk medications following opioid management. 6. Postherpetic neuralgia, being treated with neuropathics. PLAN: 1. We discussed treatment options with the patient today in regards to her ongoing pain management. We will have Dr. Carter Garcia send her fentanyl 50 mcg patch #10 for today and again release in 4 weeks. She is not in need of Dilaudid since she has been taking 1-2 tablets sparingly per day and does substitute with medical marijuana that we have been appoved for quite some time. She finds this very beneficial in the treatment in a palliative way. 2. We did discuss her postherpetic neuralgia, taking gabapentin now 3 times a day. I did discuss a lidocaine patch or lidocaine cream to place under her arm on her lesions. They do have some of that medication at home and will use that as needed. 3. I encouraged the patient and family to make an appointment with Dr. Garcia at their next visit in 2 months. He collaborated care for this Telemed appointment. <ELECTRONICALLY SIGNED> By: Kalpana Lee 09/17/20 0810 [id number] Kalpana stratton
== END ==
LOC: TELEPC 07:06 → PAIN 07:06
PROVIDERS: ATTEND Clinical Nurse Specialist Adult Health
DX: C71.9 Malignant neoplasm of brain, unspecified (principal); R51.9 Headache, unspecified; M96.1 Postlaminectomy syndrome, not elsewhere classified; F32.9 Major depressive disorder, single episode, unspecified; R53.83 Other fatigue; G89.29 Other chronic pain; F11.20 Opioid dependence, uncomplicated; G62.9 Polyneuropathy, unspecified; Z79.899 Other long term (current) drug therapy